=== PATIENT | male | born 1950 | race Caucasian/White ===

== ENCOUNTER → 2024-11-18 14:28 | Outpatient (REF) | payer OTHER, SELFPAY | LOC: RCS 14:28 | PROVIDERS: ATTENDING PHYSICIAN Nurse Practitioner Family | DX: R06.02 Shortness of breath (principal) | CPT/HCPCS: 93005; 93306 ==

== ENCOUNTER 2025-01-04 15:54 | Emergency (ER) | payer OTHER, SELFPAY ==
[2025-01-04 15:59] VITALS: BP 151/74
[2025-01-04 16:34] LABS: Hematocrit 39.0 % (39.0-52.0); Hemoglobin 12.7 g/dL (13.0-18.0); Mean Corp Hgb Conc. 32.6 g/dL (33.0-37.0); Mean Corpuscular Volume 88.4 fL (80.0-94.0); Nucleated Red Blood Cells % 0 % (-); Platelet Count 254 10^3/uL (130-400); Red Cell Dist. Width 15.0 % (11.5-14.5)
[2025-01-04 16:54] LABS: ALT (SGPT) 32 U/L (0-50); AST (SGOT) 30 U/L (17-59); Albumin 5.2 g/dl (3.5-5.0); Alkaline Phosphatase 80 U/L (38-126); Blood Urea Nitrogen 22 mg/dl (9-20); Calcium 9.7 mg/dl (8.4-10.2); Carbon Dioxide 26 mmol/L (22-30); Chloride 104 mmol/L (98-107); Glucose 94 mg/dl (70-99); Potassium 5.2 mmol/L (3.5-5.1); Sodium 140 mmol/L (135-145); Total Protein 8.1 g/dl (6.3-8.2); eGFR > 60.00
[2025-01-04 18:26] VITALS: BP 164/86
--- NOTE | 2025-01-04 19:02 | EDRN ---
marietta text sent to MD as pt reports that he feels much better and doesnt feel a need to have a chest xray and would like to be d/c
--- NOTE | 2025-01-04 19:05 | ED.GENMED ---
History of Present Illness
General
Chief Complaint: Medication Reaction
Time Seen by Provider: 01/04/25 18:16
History of Present Illness
History of Present Illness:
74-year-old male with history of hypertension presents to the emergency department for evaluation of abrupt onset of lightheadedness, heart palpitations, and dyspnea on exertion. This occurred for a short period of time today. He states that is
similar to episodes that ultimately led to a diagnosis of hypothyroidism in the past. Notes that he has been down titrating his levothyroxine due to undetectably low TSH levels over the past 6 to 8 weeks. Currently feels well with no complaints.
In regards to dyspnea on exertion this is apparently been going on for several months but is neglected to get this evaluated. No chest pain on exertion or leg swelling.
Review of Systems
Review of Systems
Allergies reviewed?: Yes
All Other Systems: ROS reviewed and negative except as documented in HPI and ROS
Phy Exam
Physical Exam
Physical Exam:
GEN: Well appearing, NAD, WDWN
HEENT: Oral mucosa moist, no scleral icterus
Cardiac: Regular rate and rhythm, no murmur
Lung: No respiratory distress, no tachypnea, lungs clear to auscultation bilaterally
MSK: No gross deformity or injuries
Skin: Good color, no pallor or jaundice, no rashes
Neuro: AO x3, moves all extremities freely
Psych: Calm, cooperative
Course
Orders/Labs/Results
Orders:
Orders
01/04/25 16:11
Electrocardiogram (*1) Urgent
Reason for Study: Shortness of Breath
EKG- Treatment ONCE
01/04/25 16:27
Complete Blood Count/With Diff Urgent
Comprehensive Metabolic Panel Urgent
Free T4 Urgent
Pro-BNP [NT-proBNP] Urgent
TSH Reflex To Free T4 Urgent
01/04/25 18:27
CR Chest - 2 Views Urgent
Comment:
Reason For Exam: dyspnea on exertion
Abnormal Lab Results
01/04/25
16:27
WBC 13.2 H 10^3/uL
(4.8-10.8)
RBC 4.41 L 10^6/uL
(4.70-6.10)
Hgb 12.7 L g/dL
(13.0-18.0)
MCHC 32.6 L g/dL
(33.0-37.0)
RDW 15.0 H %
(11.5-14.5)
Abs Immat Gran (auto) 0.1 H 10^3/uL
(0-0.05)
Absolute Neuts (auto) 9.7 H 10^3/uL
(1.4-6.5)
Absolute Monos (auto) 1.4 H 10^3/uL
(0.1-0.6)
Lymphocytes % 13.2 L %
(20.5-51.1)
Monocytes % 10.8 H %
(1.7-9.3)
Potassium 5.2 H mmol/L
(3.5-5.1)
BUN 22 H mg/dl
(9-20)
Albumin 5.2 H g/dl
(3.5-5.0)
TSH (Reflex) 0.12 L uIU/ml
(0.47-4.68)
01/04/25 16:27
01/04/25 16:27
Vital Signs
Initial and Last Documented VS:
Initial Vital Signs
Temp Pulse Resp BP Pulse Ox
97.9 F 74 18 151/74 98
01/04/25 15:59 01/04/25 15:59 01/04/25 15:59 01/04/25 15:59 01/04/25 15:59
Last Documented Vital Signs
Temp Pulse Resp BP Pulse Ox
97.9 F 64 16 164/86 100
01/04/25 15:59 01/04/25 18:26 01/04/25 18:26 01/04/25 18:26 01/04/25 19:06
MDM/Problems Addressed
MDM/Problems Addressed:
Patient is clinically well at this time. I did recommend a chest x-ray for further assessment of his dyspnea on exertion that has been going on for quite some time however he declined and opted for discharge prior to this imaging study. Doubt
correlation with his hypothyroidism given improved TSH levels on lower levothyroxine dose. Suitable for outpatient management and PCP follow-up
Comment
Comment:
EKG independently interpreted by me shows normal sinus rhythm at a rate of [address] changes
*Pulse Oximetry
SaO2: 100
Oxygen Mode of Delivery: Room air
Patient hypoxic: no
*Critical Care Note
Total Time (30-74mins, 75-104mins- exclusive of procedures): Not Applicable
ED Attending Note
-
Portions of this chart may have been created with voice recognition software.� Occasional wrong word or��sound alike� substitutions may have occurred due to the inherent limitations of voice recognition software.
Discharge Plan
Departure
Patient Disposition: Home (Routine Discharge)
Date of Disposition: 01/04/25
Time of Disposition: 19:05
Patient with high blood pressure during this ER visit?: No
Discharge Problem:
Lightheadedness
Instructions: Dizziness in adults - ED discharge instructions
Referrals:
Kusum Potter CRNP [Family Provider, Internal Medicine]
Activity Restrictions/Additional Instructions:
Please consider follow up with a glass glazier to discuss your exertional shortness of breath further
Interventions
Interventions:
*Risk Screen - Suicide Last Done: 01/04/25 15:59
*General Assessment Last Done: 01/04/25 15:59
*Neglect/Abuse Screening Last Done: 01/04/25 18:26
*ED- Fall Risk Assessment Last Done: 01/04/25 18:26
*ED COVID-19 Vaccine History Last Done: 01/04/25 18:26
*Nursing Disposition Last Done: 01/04/25 19:08
ED-EENT Assessment Last Done: 01/04/25 18:26
ED- Pulmonary Assessment Last Done: 01/04/25 18:26
ED-Skin Assessment Last Done: 01/04/25 18:26
Discharge Date and Time
Discharge Date/Time: 01/04/25 19:09
Print Language: [id number]
== END 2025-01-04 19:09 | disposition home or self-care (01) ==
LOC: EMR 15:54
PROVIDERS: Emergency Medicine; EMERGENCY PHYSICIAN Emergency Medicine; FAMILY PHYSICIAN Nurse Practitioner Family
DX: R42 Dizziness and giddiness (principal); R00.2 Palpitations; R06.09 Other forms of dyspnea; I10 Essential (primary) hypertension; E03.9 Hypothyroidism, unspecified; Z88.0 Allergy status to penicillin
CPT/HCPCS: 99283; 80053; 83880; 84439; 84443; 85025; 93005